=== PATIENT | male | born 1930 | race Caucasian/White ===

== ENCOUNTER → 2016-10-30 | Outpatient (CLI) | payer MEDICARE, OTHER ==
[~2016-10-30] MED LIST: AMLO2.5T33 PO; ASCO-297 PO; ASPI-611 PO; CA C1TAB15 PO; CALC-652 PO; CARV12.525 PO; CHOL200024 PO; FINA5TAB42 PO; LISI-126 PO; SULF1TAB3 PO
--- NOTE | 2016-10-30 13:32 | DI ---
Indication: ITS.REASON: S52.592A lower end of left radius FX; S52.602A lower end of lef PROCEDURE: WRIST LEFT 2 VIEW: Encounter: Subsequent Comparison: October 23, 2016 and October 16, 2016 Findings: Healing distal radial fracture appears stable in alignment. Possible nondisplaced distal ulnar fracture as well. No new fracture or dislocation seen. Splinting material has been removed. Degenerative change at the first carpometacarpal joint. Calcifications in the radiocarpal joint. Impression: Stable alignment and routine healing of the distal radial fracture. .
== END ==
LOC: IMA 12:58
PROVIDERS: ATTEND Orthopaedic Surgery
DX: S52.592D Other fractures of lower end of left radius, subsequent encounter for closed fracture with routine healing (principal); S52.602D Unspecified fracture of lower end of left ulna, subsequent encounter for closed fracture with routine healing; W18.39XD Other fall on same level, subsequent encounter